=== PATIENT | male | born 1990 | race Caucasian/White ===

== ENCOUNTER 2020-07-26 09:54 | Inpatient (IN) | payer MEDICAID ==
[~2020-07-26] VITALS: Ht 177.8 cm; Wt 94.3 kg
[2020-07-26] MEDS ORDERED: SODIUM CHLORIDE 0.9% 1,000 ML IV ONE ×2 (10:30→13:00)
[2020-07-26] MEDS ORDERED: LORAZEPAM 2MG/ML CPJ IV STA (10:30)
[2020-07-26 10:52] LABS: EOSINOPHILS % 0.1 % (0.0-5.0); HEMATOCRIT. 54.4 % (42.0-52.0); HEMOGLOBIN. 19.2 g/dL (14.0-18.0); LYMPHOCYTES % 21.6 % (20.0-50.0); MEAN CORPUSCULAR HEMOGLOBIN 31.7 pg (28.0-32.0); MEAN CORPUSCULAR VOLUME 89.7 fL (80.0-94.0); MEAN PLATELET VOLUME 8.3 fl (7.4-10.4); MONOCYTES % 6.6 % (2.0-8.0); NEUTROPHILS % 70.7 % (40.0-76.0); PLATELET 319 x1000/uL (130-400); RED BLOOD CELL COUNT 6.06 mill/uL (4.7-6.1); RED CELL DISTRIBUTION WIDTH 14.2 % (11.6-14.6)
[2020-07-26 10:59] LABS: CHLORIDE 118 mEq/L (98-107)
[2020-07-26 11:22] LABS: ETHANOL BLOOD 403 mg/dL
[2020-07-26] MEDS ORDERED: KCL 10MEQ/50ML PREMIX 50 ML IV ONE ×3 (11:30)
[2020-07-26] MEDS ORDERED: POTASSIUM CHLORIDE 20MEQ TABLET SR PO ONE (11:30)
[2020-07-26] MEDS ORDERED: POTASSIUM CHLORIDE INJ 30 MEQ in DEXT 5% WATER 250 ML IV SCH (12:00)
[2020-07-26 12:01] LABS: CLARITY URINE CLOUDY (CLEAR); COLOR URINE DK YELLOW (YELLOW); KETONES URINE 1+ (NEGATIVE); LEUKOCYTE ESTERASE URINE NEGATIVE (NEGATIVE); NITRITE URINE NEGATIVE (NEGATIVE); OCCULT BLOOD URINE TRACE (NEGATIVE); PROTEIN URINE 1+ (NEGATIVE); SPECIFIC GRAVITY URINE 1.027 (1.005-1.030)
[2020-07-26 12:21] LABS: CANNABINOID URINE SCREEN PRESUMTIVE POSITIVE (NEGATIVE); METHADONE URINE SCREEN NEGATIVE (NEGATIVE); OPIATES URINE SCREEN NEGATIVE (NEGATIVE); PHENCYCLIDINE URINE SCREEN NEGATIVE (NEGATIVE)
[2020-07-26 12:22] LABS: *AMPHETAMINES SCREEN URINE NEGATIVE (NEGATIVE); *BARBITURATES SCREEN URINE NEGATIVE (NEGATIVE); *BENZODIAZEPINES SCREEN URINE NEGATIVE (NEGATIVE); *COCAINE SCREEN URINE NEGATIVE (NEGATIVE)
[2020-07-26] MEDS ORDERED: LORAZEPAM 2MG/ML CPJ IV ONE (13:00)
[2020-07-26] MEDS ORDERED: MVI, ADULT NO.1 10 ML, FOLIC ACID 1 MG, THIAMINE HCL 100 MG in SODIUM CHLORIDE 0.9% 1,0... IV NR (15:45)
[2020-07-26] MEDS ORDERED: CLONIDINE 0.1MG TABLET PO PRN (15:45)
[2020-07-26] MEDS ORDERED: ONDANSETRON HCL 4MG/2ML INJ IV PRN (15:45)
[2020-07-26] MEDS ORDERED: MAGNESIUM 2 G PREMIX 50 ML IV NR (15:45)
[2020-07-26] MEDS ORDERED: MAGNESIUM/ALUMINUM HYDROXIDE/SIMETHICONE 30ML UDC PO PRN (15:45)
[2020-07-26] MEDS ORDERED: MAGNESIUM 1 G PREMIX 100 ML IV ONE (15:45)
[2020-07-26] MEDS ORDERED: DIPHENHYDRAMINE 50MG/ML VIAL IV PRN (15:45)
[2020-07-26] MEDS ORDERED: ACETAMINOPHEN 325MG TABLET PO PRN (15:45)
[2020-07-26] MEDS ORDERED: POTASSIUM CHLORIDE INJ 40 MEQ in DEXT 5%/0.45% NACL 1000ML 1,000 ML IV SCH (17:00)
[2020-07-26] MEDS ORDERED: DEXT 5%/0.45% NACL KCL 40MEQ/L 1,000 ML IV SCH (17:45)
[2020-07-26] MEDS: LORAZEPAM 2MG/ML CPJ IV PRN (19:56)
[2020-07-26 20:00] VITALS: BP 113/69
[2020-07-26] MEDS: FAMOTIDINE 20MG TABLET PO SCH (21:47)
[2020-07-26] MEDS: ACETAMINOPHEN 325MG TABLET PO PRN (21:47)
[2020-07-26 22:18] VITALS: BP 145/80
[2020-07-27] VITALS: BP 115/77
[2020-07-27] MEDS: LORAZEPAM 2MG/ML CPJ IV PRN ×5 (00:08→21:26)
[2020-07-27 04:00] VITALS: BP 108/59
[2020-07-27 06:33] LABS: BASOPHILS % 0.9 % (0.0-2.0); EOSINOPHILS % 2.1 % (0.0-5.0); HEMATOCRIT. 46.6 % (42.0-52.0); HEMOGLOBIN. 16.1 g/dL (14.0-18.0); LYMPHOCYTES % 28.4 % (20.0-50.0); MEAN CORPUSCULAR HEMOGLOBIN 31.2 pg (28.0-32.0); MEAN CORPUSCULAR VOLUME 90.5 fL (80.0-94.0); MEAN PLATELET VOLUME 8.2 fl (7.4-10.4); MONOCYTES % 7.4 % (2.0-8.0); NEUTROPHILS % 61.2 % (40.0-76.0); PLATELET 234 x1000/uL (130-400); RED BLOOD CELL COUNT 5.15 mill/uL (4.7-6.1); RED CELL DISTRIBUTION WIDTH 14.2 % (11.6-14.6)
[2020-07-27 06:40] LABS: CHLORIDE 109 mEq/L (98-107)
[2020-07-27 06:49] LABS: PHOSPHORUS 1.7 mg/dL (2.5-4.9)
[2020-07-27 08:00] VITALS: BP 110/63
[2020-07-27] MEDS: FAMOTIDINE 20MG TABLET PO SCH ×2 (10:58→21:26)
[2020-07-27 16:00] VITALS: BP 115/65
[2020-07-27] MEDS ORDERED: POTASSIUM PHOS,M-BASIC-D-BASIC 20 MMOL in DEXT 5% WATER 243.3333 ML IV NR (16:00)
[2020-07-27] MEDS: CHLORDIAZEPOXIDE 25MG CAPSULE PO SCH ×2 (17:18→21:26)
[2020-07-27] MEDS: ACETAMINOPHEN 325MG TABLET PO PRN ×2 (17:18→21:27)
[2020-07-27 20:00] VITALS: BP 113/64
[2020-07-27] MEDS ORDERED: KETOROLAC 30MG/ML VIAL IV PRN (21:45)
[2020-07-28] VITALS: BP 111/57
[2020-07-28 04:00] VITALS: BP 114/67
[2020-07-28] MEDS: CHLORDIAZEPOXIDE 25MG CAPSULE PO SCH ×2 (05:46→13:27)
[2020-07-28 08:00] VITALS: BP 113/68
[2020-07-28] MEDS: LORAZEPAM 2MG/ML CPJ IV PRN (10:38)
[2020-07-28] MEDS: FAMOTIDINE 20MG TABLET PO SCH (10:38)
[2020-07-28 12:00] VITALS: BP 111/67
[2020-07-28 16:00] VITALS: BP 130/85
[2020-07-28 16:25] VITALS: BP 130/85
== END 2020-07-28 17:18 | disposition home or self-care (01) | DRG 52 ==
LOC: ER 10:12 → EDBD 10:12 → 8WST 13:00 → ENRESERV 17:16
PROVIDERS: ADMIT Internal Medicine; ATTEND Internal Medicine
DX: G92 Toxic encephalopathy (principal); E83.39 Other disorders of phosphorus metabolism; E87.0 Hyperosmolality and hypernatremia; E83.42 Hypomagnesemia; E83.51 Hypocalcemia; E86.0 Dehydration; E87.6 Hypokalemia; F10.239 Alcohol dependence with withdrawal, unspecified; F32.9 Major depressive disorder, single episode, unspecified; F41.1 Generalized anxiety disorder; Y90.8 Blood alcohol level of 240 mg/100 ml or more; Z79.899 Other long term (current) drug therapy
CPT/HCPCS: 36415; 73610; 80053; 80305; 80320; 81003; 83735; 84100; 85025; 93005; 99291; J2060; J2405; J3411; J3475; J3480; J3490; J7030; J7040; J7042; J7060; G0480